=== PATIENT | male | born 2005 | race Caucasian/White ===

== ENCOUNTER → 2024-11-06 15:15 | Outpatient (REF) | payer OTHER, SELFPAY | LOC: HWRAD 15:15 | PROVIDERS: ATTENDING PHYSICIAN Physician Assistant; FAMILY PHYSICIAN Family Medicine | DX: G47.30 Sleep apnea, unspecified (principal); R06.09 Other forms of dyspnea; R07.89 Other chest pain | CPT/HCPCS: 71046 ==